=== PATIENT | male | born 1945 | race Caucasian/White ===

== ENCOUNTER 2016-09-14 15:05 | Emergency (ER) | payer MEDICARE, OTHER ==
[2016-09-14 11:39] LABS: BASOPHILS 0.2 %; BASOPHILS ABSOLUTE 0.01 10/3/uL (0.0-0.16); EOSINOPHILS 3.1 %; EOSINOPHILS ABSOLUTE 0.17 10/3/uL (0.0-0.53); ER CBC TAT 0 Hrs 05 Mins; HEMOGLOBIN 10.7 g/dL (13.6-17.8); IMMATURE GRANULOCYTES 0.4 %; IMMATURE GRANULOCYTES ABSOLUTE 0.02 10/3/uL (0.0-0.11); LYMPHOCYTES 18.9 %; LYMPHOCYTES ABSOLUTE 1.05 10/3/uL (0.67-4.30); MEAN CORPUS HGB CONC 34.4 g/dL (32.0-36.0); MEAN CORPUSCULAR HEMOGLOB 31.3 pg (26.0-34.0); MEAN CORPUSCULAR VOLUME 90.9 fL (80-100); MEAN PLATELET VOLUME 9.2 fL (9.2-13.0); MONOCYTES 8.1 %; MONOCYTES ABSOLUTE 0.45 10/3/uL (0.21-1.20); NEUTROPHILS 69.3 %; NEUTROPHILS ABSOLUTE 3.87 10/3/uL (2.02-8.40); RBC DISTRIBUTION WIDTH 16.3 % (12.0-16.0); RED CELL COUNT 3.42 10/6/uL (4.7-6.1); WHITE BLOOD CELLS 5.6 10/3/uL (4.5-10.5)
[2016-09-14 11:41] LABS: HEMATOCRIT 31.1 % (40.0-51.0); MANUAL DIFF NO %; PLATELET COUNT 162 10/3/uL (150-400)
[2016-09-14 11:48] LABS: PARTIAL THROMBO TIME 29.2 SEC (22.5-37.2)
[2016-09-14 11:49] LABS: PROTIME (NOT ORD) 13.2 SEC (12.0-14.5)
[2016-09-14 11:50] LABS: CHLORIDE, SERUM 104 MMOL/L (96-112); GLUCOSE, SERUM 145 MG/DL (60-99); POTASSIUM, SERUM 4.4 MMOL/L (3.5-5.3); SODIUM, SERUM 137 MMOL/L (135-148)
[2016-09-14 11:52] LABS: BUN (BLOOD UREA NITROGEN) 41 MG/DL (6-23); CALCIUM, SERUM 9.7 MG/DL (8.5-10.4); CO2 (CARBON DIOXIDE) 30 MMOL/L (24-34); CREATININE 2.52 MG/DL (0.70-1.30); GFR AFRICAN AMERICAN 29 ML/MIN (>=60); GFR NON AFRICAN AMERICAN 25 ML/MIN (>=60)
[2016-09-14 13:19] LABS: TROPONIN I <0.02 NG/ML (<0.05)
[~2016-09-14 15:05] MED LIST: ACET500CAP PO; ACTOS30 PO; AMARYL1 MG PO; AMARYL2 PO; ASAB PO; CALCIUM CARBONATE PO; CARDU4 PO; FESO4 PO; FLOMAX4 PO; FLONASE NAS; GLUCPH8 PO; HYZAAR 100/25 T1 TAB PO; LIPITOR40 PO; LOP25 PO; MEDROLPAK4 PO; MVI PO; NITROSTAT0.4 MG SL; NORV5 PO; NOVOPEN SC; OTC VITAMIN D PO; PRAVACHOL40 MG PO; PROTONIX PO; SODBICAR10 PO; ULTRAM50 PO; Z300 PO; [UNRECOGNIZED DRUG - CODE] PO
[2016-09-16] MEDS ORDERED: ZOFRAN4 PO (09:57)
[2016-09-16] MEDS ORDERED: PERCOCET 7.5/321 TAB PO (09:57)
[2016-09-16] MEDS ORDERED: [UNRECOGNIZED DRUG - REMARK] (09:58)
[2016-09-16] MEDS ORDERED: MULTIPLE VIT PO (10:18)
== END 2016-09-14 15:20 | disposition admitted as inpatient to this hospital (09) ==
LOC: ER 15:05
PROVIDERS: Nurse Practitioner
DX: S02.2XXA Fracture of nasal bones, initial encounter for closed fracture (principal); S02.80XA Fracture of other specified skull and facial bones, unspecified side, initial encounter for closed fracture; S02.40DA Maxillary fracture, left side, initial encounter for closed fracture; S20.319A Abrasion of unspecified front wall of thorax, initial encounter; W01.198A Fall on same level from slipping, tripping and stumbling with subsequent striking against other object, initial encounter; I12.9 Hypertensive chronic kidney disease with stage 1 through stage 4 chronic kidney disease, or unspecified chronic kidney disease; N18.9 Chronic kidney disease, unspecified; Z95.1 Presence of aortocoronary bypass graft; Z79.82 Long term (current) use of aspirin; Z79.899 Other long term (current) drug therapy; Z79.4 Long term (current) use of insulin
CPT/HCPCS: 70450; 70486; 71020; 72125; 80048; 84484; 85025; 85610; 85730; 93005; 96374; 96375; 99284; A9270-GY; J0690; J2405

== ENCOUNTER 2016-09-17 09:33 | Day surgery (SDC) | payer MEDICARE, OTHER ==
--- NOTE | ~2016-09-17 | OP ---
Record Of Operation [facility] [address] [place]. [address] NAME: WHITNEY HUTCHINSON : 49 STATUS : [facility]#: [id number] AGE: 70 ADM/REG DATE : 09/17/16 MR#: [id number] REPORT SERV DATE: 09/18/16 DICTATED BY: CAMDEN NG DATE: 09/17/16 REPORT STATUS : Draft TRANSCRIBED BY: MODL DATE: 09/17/16 DATE OF PROCEDURE: 09/17/2016 SERVICE: Otolaryngology. PREOPERATIVE DIAGNOSIS: Closed nasal fracture. POSTOPERATIVE DIAGNOSIS: Closed nasal fracture. PROCEDURE: Closed reduction of nasal fracture. SURGEON: Camden Ng M.D. ANESTHESIA: General endotracheal anesthesia. ESTIMATED BLOOD LOSS: Minimal. COMPLICATIONS: None. SPECIMENS: None. FINDINGS: The patient had a severely comminuted fracture of the nasal bones. The nose itself was pushed off to the right. He had complete obstruction, more especially in the left side of the nose. He also had a fracture that went through the lacrimal duct on the left. STATE OF OPERATION: The patient was brought to the operating room in supine position, transferred to the operating room table. All pressure points were padded, and general endotracheal anesthesia was established. The patient was draped out for a closed reduction. Initially, I was going to try to cannulate his lacrimal ducts on the left-hand side with Moore stenting. I attempted this, I was able to get the upper stent in past the lacrimal sac, but I was not able to retrieve it or get into the nose. I attempted the left inferior canaliculus as well and was unsuccessful. Next, I took a Boies elevator and reset the nasal bones and septum. I outfractured both inferior turbinates, and I straightened the septum with the Boies elevator. Next, I placed Eaton splints coated in bacitracin and secured it to the anterior septum with 2-0 nylon suture. I cleansed the outer portion of the nose. The patient had an open skin wound in the dorsum of the nose. This was cleaned thoroughly with warm saline. I sutured it close with two 5-0 nylon sutures and then placed a dorsal nasal dressing including modified Steri-Strips and an Aquaplast splint. This concluded the case. The patient was turned back over to Anesthesia, where he awoke, was extubated, and transferred to the PACU in stable condition. PS/KIM Record Of [place] [id number] [place]. [address] NAME: WHITNEY HUTCHINSON : [birth year] [facility] PAT#: [id number] AGE: 70 ADM/REG DATE : 09/17/16 MR#: [id number] REPORT SERV DATE: 09/18/16 DICTATED BY: CAMDEN NG DATE: 09/17/16 REPORT STATUS : Draft TRANSCRIBED BY: KIM DATE: 09/17/16 Camden Ng MD / [id number] CC: Derian Price MD
[~2016-09-17 09:33] MED LIST changes: +MULTIPLE VIT PO; +PERCOCET 7.5/321 TAB PO; +ZOFRAN4 PO; +[UNRECOGNIZED DRUG - REMARK]
== END 2016-09-17 22:06 | disposition home or self-care (01) ==
LOC: SDC 09:33
PROVIDERS: Otolaryngology
PROC: 0NSBXZZ Reposition Nasal Bone, External Approach (ICD-10-PCS; principal; 2016-09-17 10:45)
DX: S02.2XXA Fracture of nasal bones, initial encounter for closed fracture (principal); J34.2 Deviated nasal septum; J98.8 Other specified respiratory disorders; I10 Essential (primary) hypertension; E78.00 Pure hypercholesterolemia, unspecified; M19.90 Unspecified osteoarthritis, unspecified site; N18.9 Chronic kidney disease, unspecified; I12.9 Hypertensive chronic kidney disease with stage 1 through stage 4 chronic kidney disease, or unspecified chronic kidney disease; E11.22 Type 2 diabetes mellitus with diabetic chronic kidney disease; D63.1 Anemia in chronic kidney disease; Z95.1 Presence of aortocoronary bypass graft; Z98.890 Other specified postprocedural states; Z87.891 Personal history of nicotine dependence; Z79.82 Long term (current) use of aspirin
CPT/HCPCS: 82962; A9270-GY; J0690; J2250; J2270; J2405; J2710; J3010